=== PATIENT | male | born 1995 | race Two or more races ===

== ENCOUNTER → 2018-12-02 | Outpatient (CLI) | payer OTHER ==
--- NOTE | 2018-12-02 09:29 | REP ---
CT LUMBAR SPINE WITHOUT CONTRAST: HISTORY: Low back pain. There is no disc bulge of herniation at the L1-2, L2-3 and L5-S1 levels. The nerves exit the neural foramina without compression. There is partial sacralization of the L5 vertebral body. A diffuse disc bulge is present at the L3-4 level. There is minimal compression of the thecal sac. The L3 nerves exit the neural foramina without compression. A diffuse disc bulge is present at the L4-5 level. There is minimal compression of the thecal sac. The L4 nerves exit the neural foramina without compression. The L3-4 and L4-5 intervertebral discs are decreased in height consistent with disc degeneration. There is no fracture or subluxation. IMPRESSION: Diffuse disc bulges at the L3-4 and L4-5 levels with minimal thecal sac compression. Electronically Signed by Garo Schaefer MD 12/02/2018 09:34 A
== END ==
LOC: M RAD 07:59
PROVIDERS: ATTEND Physician Assistant
DX: M51.26 Other intervertebral disc displacement, lumbar region (principal); M51.36 Other intervertebral disc degeneration, lumbar region

== ENCOUNTER → 2020-01-05 | Outpatient (CLI) | payer OTHER | LOC: M LABSMTC 09:44 | PROVIDERS: ATTEND Physical Medicine & Rehabilitation | DX: Z03.818 Encounter for observation for suspected exposure to other biological agents ruled out (principal) ==

== ENCOUNTER → 2020-01-07 | Outpatient (CLI) | payer OTHER ==
[2020-01-07 11:23] LABS: PLATELET COUNT, AUTOMATED 287 10^3/uL (150-450)
[2020-01-07 11:44] LABS: COLLAGEN EPINEPHRINE 124 SECONDS (74-162); INR 1.01
[2020-01-07 11:45] LABS: PARTIAL THROMBOPLASTIN TIME 27.3 SECONDS (25.0-38.4)
== END ==
LOC: M WUC 10:10
PROVIDERS: ATTEND Physician Assistant
DX: Z01.812 Encounter for preprocedural laboratory examination (principal); M47.27 Other spondylosis with radiculopathy, lumbosacral region